=== PATIENT | male | born 1940 | race Caucasian/White ===

== ENCOUNTER 2020-04-23 15:58 | Outpatient (CLI) | payer MEDICARE, BC ==
--- NOTE | 2020-04-23 16:35 | CT ---
CT HEAD WITHOUT CONTRAST: 04/23/20 INDICATIONS: Headache. FINDINGS: Ventricles have normal size and position. No evidence of intracranial mass, hemorrhage, infarct, or o ther acute process. No significant chronic ischemic change. Paranasal sinuses and mastoids appear [place]ber[place] ar. No acute findings. POS: AGW
--- NOTE | 2020-04-23 17:39 | CT ---
CT CERVICAL SPINE: 04/23/20 INDICATIONS: Headache. FINDINGS: Cervical vertebrae maintain height and alignment. Moderately severe degenerative changes are noted. P rominent anterior and lateral osteophytes are seen from the cervical vertebrae. Loss of disc space at C5-6 and C6-7. Vacuum phenomenon at C5-6 disc space. No evidence of compression or acute fracture. C2-3: No significant disc bulge or spondylosis. C3-4: Posterior disc bulge and spondylosis mildly compress the anterior cord. Bilateral foraminal rosa nosis due to uncinate and facet hypertrophy. C4-5: Disc bulge and spondylosis abuts the anterior cord. No significant foraminal stenosis. C5-6: Disc bulge and spondylosis efface the anterior subarachnoid space. Mild right foraminal stenosi s due to facet and uncinate hypertrophy. C6-7: Disc bulge and spondylosis efface the anterior subarachnoid space. Bilateral foraminal narrowin g due to uncinate hypertrophy. IMPRESSION: Multilevel degenerative disc changes of the cervical spine with findings at each level as detailed ab ove. POS: AGW
== END 2020-04-23 15:59 | disposition home or self-care (01) ==
LOC: BICCT 15:58
PROVIDERS: ATTEND Family Medicine
DX: G44.59 Other complicated headache syndrome (principal); M50.31 Other cervical disc degeneration, high cervical region
CPT/HCPCS: 70450; 72125